=== PATIENT | female | born 1945 | race Caucasian/White ===

== ENCOUNTER 2021-02-23 15:32 | Inpatient (IN) | payer MEDICARE ==
[~2021-02-23] VITALS: Ht 174 cm; Wt 84.1 kg
[2021-02-23] MEDS ORDERED: METRONIDAZOLE TOP (16:14)
[2021-02-23] MEDS ORDERED: PRILOSEC20 MG PO (16:15)
[2021-02-23] MEDS ORDERED: ZOLOFT100 MG PO (16:16)
[2021-02-23] MEDS ORDERED: LIPITOR40 MG PO (16:17)
[2021-02-23] MEDS ORDERED: VALSARTAN-HCTZ1 EAC4 PO (16:19)
[2021-02-23] MEDS ORDERED: VENTOLIN HFA IN18 GM INH (16:53)
[2021-02-23 17:13] LABS: BILIRUBIN NEGATIVE (NEGATIVE); BLOOD NEGATIVE Ery/uL (NEGATIVE); CLARITY CLEAR (CLEAR); COLOR YELLOW (YELLOW); GLUCOSE (U) NORMAL (NORMAL); LEUKOCYTES NEGATIVE Leu/uL (NEGATIVE); NITRITE NEGATIVE (NEGATIVE); PROTEIN NEGATIVE (NEGATIVE); SPECIFIC GRAVITY 1.015 (1.001-1.030); pH 8.5 (5.0-9.0)
[2021-02-23 17:23] LABS: BACTERIA TRACE; SQUAMOUS EPITHELIAL CELLS RARE; URINARY RBC RARE; URINARY WBC RARE
[2021-02-24 05:40] LABS: BASOPHIL 0.3 % (0-2); EOSINOPHIL 1.5 % (0-7); HCT 31.7 % (37.0-47.0); HGB 10.4 g/dl (12.5-16.0); LYMPHOCYTE 15.2 % (15-48); MCH 27.6 pg (25.0-31.0); MCHC 32.8 g/dL (32.0-36.0); MCV 84.1 fL (78.0-100.0); MONOCYTE 5.9 % (0-12); MPV 11.2 fL (6.0-9.5); NEUTROPHIL 76.8 % (41-80); NRBC 0; PLT 145 K/uL (150-400); RBC 3.77 M/uL (4.20-5.40); RDW 14.3 % (11.5-14.0); WBC 7.2 K/uL (4.0-10.5)
[2021-02-24 06:26] LABS: BUN/CREAT RATIO (CALC) 14.6 RATIO; CREATININE 0.96 mg/dL (0.51-0.95); MAGNESIUM 1.9 mg/dL (1.8-2.4); POTASSIUM 3.7 mmol/L (3.5-5.1)
[2021-02-24 09:52] LABS: CKMB 0.7 ng/mL (0.0-3.6)
--- NOTE | 2021-02-24 13:42 | NUR ---
PT LIVES ALONE; DTR IN ROOM WHEN I WAS GOING OVER IM AND ASKED ABOUT HER GETTING REHAB. SHE WANTS HER TO GO [facility], HOWEVER THE PT WANTS TO HAVE [facility]. PT IS ALERT AND ORIENTED I DID DISCUSS TO DTR THAT UNLESS SHE AGREES WE CAN NOT SEND A REFFERAL. DTR FOLLOWED ME OUT AND WANTS SS TO SPEAK TO HER MOM AGAIN IN AM TO SEE IF SHE COULD EXPLAIN TO HER ABOUT SHORT TERM REHAB AGAIN. I DID TRY AN ATTEMPT TO EXPLAIN BUT PATIENT WOULD SHAKE HER HEAD NO. I TOLD DTR I WOULD SEE IF A SS WOULD COME AND SEE AGAIN ONCE SHE WAS ABLE TO WORK WITH THERAPY MORE AFTER SHE WAS MEDICALLY STABLE. PT REPORTS SHE HAS A SHOWER BENCH AT HOME A ROLLING WALKER , CANE AND RAISED TOLIET SEAT . SHE SAID SHE MAY NEED A BED SIDE POTTY IF RECCOMMENDED BY PT/OT. WE WILL FOLLOW FOR D/C NEEDS AND I DID PLACE A SS REFFERAL REQUESTESD BY DTR.
--- NOTE | 2021-02-24 14:21 | NUR ---
PT ARRIVED ON FLOOR WITH BLOOD PRESSURE 82/40 (63) MD WAS NOTIFIED AND ORDERED 1L BOLUS LR THEN 1 BAG 1L LR @ 125, HOLD ALL BLOOD PRESSURE MEDS UNTIL BLOOD PRESSURE WNL.
[2021-02-24 17:32] LABS: IRON % SATURATION 10.7 %SAT (20-50)
[2021-02-24 18:11] LABS: FOLIC ACID (SERUM) 58.7 ng/mL (8.6-58.9)
--- NOTE | 2021-02-25 03:05 | NUR ---
PT. HAS HAD INCREASING CONFUSION THE NIGHT HAS GONE ON. SHE HAS ATTEMPTED TO GET UP OUT OF BED, PULLED HER PULSE OX FINGER PROBE OFF, MADE COMMENTS THAT DONT FIT THE TIME AND SITUATION, THOUGHT SHE WAS AT HOME, AND ASKED ME TO PLEASE TURN OFF THE "MUSIC" WHICH SHE WAS REFERING TO HER IV PUMP. PT. BP HAS BEEN HYPTENSIVE TONIGHT IN WHICH 2 500 LR BOLUSES WERE GIVEN AND 5 MG MIDODRINE AFTER COMMUNICATION WITH CHIEF DIVERSITY OFFICER. WILL CONTINUE TO MONITOR PT. SHE ALSO HAS BEEN TAKING OF HER POLAR PACK. IRASEMA FREDERICK
[2021-02-25 06:23] LABS: BASOPHIL 0.2 % (0-2); EOSINOPHIL 0.5 % (0-7); HCT 24.3 % (37.0-47.0); LYMPHOCYTE 14.3 % (15-48); MCH 27.7 pg (25.0-31.0); MCHC 32.9 g/dL (32.0-36.0); MCV 84.1 fL (78.0-100.0); MONOCYTE 7.9 % (0-12); MPV 11.7 fL (6.0-9.5); NEUTROPHIL 76.7 % (41-80); NRBC 0; PLT 108 K/uL (150-400); RBC 2.89 M/uL (4.20-5.40); RDW 14.3 % (11.5-14.0); WBC 8.3 K/uL (4.0-10.5)
[2021-02-25 06:41] LABS: BUN/CREAT RATIO (CALC) 12.2 RATIO; CREATININE 0.98 mg/dL (0.51-0.95); MAGNESIUM 1.7 mg/dL (1.8-2.4); POTASSIUM 3.4 mmol/L (3.5-5.1)
--- NOTE | 2021-02-25 11:09 | NUR ---
DR GAONA ORDER FOR HOLTER MONITOR UPON DISCAHRGE
--- NOTE | 2021-02-25 12:02 | NUR ---
LATE ENTRY: MET WITH PT. ON 02/24/21. SHE DECLINED GOING TO [facility]. SHE STATED THAT SHE WANTS [facility] . SHE HAS A ROLLING WALKER AND 10/25. TC TO [place] AT [facility]. PT. HAS MEDICARE PART D.
--- NOTE | 2021-02-25 12:18 | NUR ---
TC WITH DAUGHTER, SHE WILL TALK WITH HER BROTHER AND HAVE HIM CONTACT THEIR MOTHER REGARDING GOING TO A FACILITY FOR RHEAB. SHE STATES THAT HER MOTHER CONTINUES TO REFUSE A FACILITY.
--- NOTE | 2021-02-25 13:10 | NUR ---
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 TC TO [facility], BUT WAS INFORMED THAT [facility]YA WORKS FOR [facility]. TC TO EBONI SHE CONFIRMED THAT [facility]YA WORKS FOR [facility]. ADVISED HER THAT PT. REQUESTS [facility] AND [facility]. ADVISED EBONI I DID NOT HAVE A D/C DATE OF YET, EBONI STATED THAT SHE WOULD MONITOR PT. OVER THE WEEKEND AND HOLIDAY.
--- NOTE | 2021-02-25 14:58 | NUR ---
MET WITH PT TO SIGN CHOICE FORM. SHE HAS NOT AGREED TO GO TO [facility]. SHE SIGNED CHOICE FORM. ATTEMPTED TO SPEAK WITH ADMISSIONS COORDIANTOR, BUT SHE WAS NOT IN THE OFFICE TODAY. LEFT A COICE MAIL FOR HER TO CONTACT [facility] FOR THE REFERRAL. ADVISED [facility] OF ABOVE INFORMATION SHE WILL FAX INFORMATON TO THE [facility] WELL FOLLOW UP ON SUNDAY I WILL BE OUT OF THE OFFICE.
[2021-02-26 04:30] LABS: BASOPHIL 0.3 % (0-2); EOSINOPHIL 0.9 % (0-7); HCT 22.3 % (37.0-47.0); HGB 7.3 g/dl (12.5-16.0); LYMPHOCYTE 16.1 % (15-48); MCH 27.9 pg (25.0-31.0); MCHC 32.7 g/dL (32.0-36.0); MCV 85.1 fL (78.0-100.0); MONOCYTE 8.4 % (0-12); NEUTROPHIL 73.8 % (41-80); NRBC 0; PLT 105 K/uL (150-400); RBC 2.62 M/uL (4.20-5.40); RDW 14.6 % (11.5-14.0); WBC 7.8 K/uL (4.0-10.5)
[2021-02-26 05:16] LABS: BUN/CREAT RATIO (CALC) 13.3 RATIO; CREATININE 0.9 mg/dL (0.51-0.95); MAGNESIUM 1.5 mg/dL (1.8-2.4); PHOSPHORUS 2.8 mg/dL (2.6-4.7); POTASSIUM 3.5 mmol/L (3.5-5.1)
[2021-02-27 04:15] LABS: BASOPHIL 0.3 % (0-2); EOSINOPHIL 1.4 % (0-7); HGB 7.3 g/dl (12.5-16.0); LYMPHOCYTE 13.7 % (15-48); MCH 27.8 pg (25.0-31.0); MCHC 33.2 g/dL (32.0-36.0); MCV 83.7 fL (78.0-100.0); MONOCYTE 8.1 % (0-12); MPV 12.8 fL (6.0-9.5); NEUTROPHIL 76.1 % (41-80); NRBC 0; PLT 130 K/uL (150-400); RBC 2.63 M/uL (4.20-5.40); RDW 14.6 % (11.5-14.0); WBC 7.3 K/uL (4.0-10.5)
[2021-02-27 04:33] LABS: BUN/CREAT RATIO (CALC) 14.1 RATIO; CREATININE 0.78 mg/dL (0.51-0.95); MAGNESIUM 2.4 mg/dL (1.8-2.4); PHOSPHORUS 2.5 mg/dL (2.6-4.7); POTASSIUM 3.8 mmol/L (3.5-5.1)
[2021-03-01 09:20] LABS: HCT 24.6 % (37.0-47.0); HGB 7.9 g/dl (12.5-16.0); MCH 27.7 pg (25.0-31.0); MCHC 32.1 g/dL (32.0-36.0); MCV 86.3 fL (78.0-100.0); MPV 12.3 fL (6.0-9.5); RBC 2.85 M/uL (4.20-5.40); RDW 14.6 % (11.5-14.0); WBC 5.7 K/uL (4.0-10.5)
[2021-03-01 09:29] LABS: BUN/CREAT RATIO (CALC) 14.6 RATIO; CREATININE 0.82 mg/dL (0.51-0.95); POTASSIUM 3.4 mmol/L (3.5-5.1)
--- NOTE | 2021-03-01 10:50 | NUR ---
03/01/21 Updated information sent to [facility].
--- NOTE | 2021-03-01 13:29 | NUR ---
03/01/21 [facility] has accepted for admission today providing the DS and narcotic scripts have been faxed by 3:00. Please fax to: [phone] and call report to: [phone]. Patient reports her daughter to be able to provide transportation. - A report was given to MS IRASEMA Gan and Dr. Royal.
[2021-03-01] MEDS ORDERED: TOPROL XL 50 MG50 MG PO (13:55)
[2021-03-01] MEDS ORDERED: PERCOCET 5-3251 EACH PO (13:55)
[2021-03-01] MEDS ORDERED: DIOVAN80 MG PO (13:55)
[2021-03-01] MEDS ORDERED: XARELTO10 MG PO (13:55)
== END 2021-03-01 16:15 | DRG 521 ==
LOC: FMS 15:32 → FTCU 15:32 → FMS 02-24 09:12
PROVIDERS: Internal Medicine; Legal Medicine; ADMIT Internal Medicine
PROC: 0SRB0JA Replacement of Left Hip Joint with Synthetic Substitute, Uncemented, Open Approach (ICD-10-PCS; principal; 2021-02-24 07:00)
DX: S72.012A Unspecified intracapsular fracture of left femur, initial encounter for closed fracture (principal); G93.41 Metabolic encephalopathy; I47.2 Ventricular tachycardia; F05 Delirium due to known physiological condition; Z20.822 Contact with and (suspected) exposure to COVID-19; D32.0 Benign neoplasm of cerebral meninges; I65.22 Occlusion and stenosis of left carotid artery; W19.XXXA Unspecified fall, initial encounter; I95.9 Hypotension, unspecified; E78.5 Hyperlipidemia, unspecified; M21.372 Foot drop, left foot; M21.371 Foot drop, right foot; Z88.6 Allergy status to analgesic agent; Z79.899 Other long term (current) drug therapy; Z90.710 Acquired absence of both cervix and uterus; Z90.49 Acquired absence of other specified parts of digestive tract; Z98.890 Other specified postprocedural states; Z90.89 Acquired absence of other organs
CPT/HCPCS: 36415; 70450; 71045; 73501; 73610; 76000; 80048; 81001; 82553; 82607; 82746; 83540; 83550; 83605; 83735; 84100; 84484; 85025; 86850; 86900; 86901; 87040; 88305; 93005; 94010; 97110; 97116; 97162; 97166; 97530; 97530-GP; 97535; C1776; J0171; J0697; J1100; J1170; J2250; J2270; J2370; J2405; J2704; J2710; J2795; J3010; J3475; J7120; Q9967; U0002